=== PATIENT | female | born 1975 | race African-American/Black ===

== ENCOUNTER 2016-06-25 12:25 | Emergency (ER) | payer MEDICAID ==
--- NOTE | 2016-06-25 12:55 | ER Document Report ---
ED Medical Screen (RME) - General Chief Complaint: Post Surgical Bleeding Stated Complaint: POST OP PROBLEMS Notes: Patient had a "tummy tuck" in the [place] last . She flew home from there yesterday morning. She noticed that the incision was beginning to open and drain before she left the [place], but now, she says it has "busted open" and is draining pus. She's been running a low-grade fever last night. She is on an antibiotic prescribed in the [place] but doesn't know which antibiotic and she's been also taking amoxicillin that she has left over from previously. TRAVEL OUTSIDE OF THE [place] IN LAST 30 DAYS: No - Related Data Allergies/Adverse Reactions: No Known Allergies Allergy (Verified 06/25/16 12:42) Past Medical History - Past Medical History Cardiac Medical History: Reports: Hx Hypertension - lisinopril Denies: Hx Coronary Artery Disease, Hx Heart Attack Pulmonary Medical History: Denies: Hx Asthma, Hx Bronchitis, Hx COPD, Hx Pneumonia Neurological Medical History: Denies: Hx Cerebrovascular Accident, Hx Seizures Renal/ Medical History: Denies: Hx Peritoneal Dialysis Musculoskeltal Medical History: Denies Hx Arthritis Past Surgical History: Reports: Hx Gynecologic Surgery - Uterine ablation, Hx Hysterectomy - Immunizations Hx Diphtheria, Pertussis, Tetanus Vaccination: Yes Physical Exam - Vital signs Vitals: Temp Pulse Resp BP Pulse Ox 97.9 F 65 19 122/78 100 06/25/16 12:44 06/25/16 12:44 06/25/16 12:44 06/25/16 12:44 06/25/16 12:44 Course - Vital Signs Vital signs: Temp Pulse Resp BP Pulse Ox 97.9 F 65 19 122/78 100 06/25/16 12:44 06/25/16 12:44 06/25/16 12:44 06/25/16 12:44 06/25/16 12:44
[2016-06-25 13:33] LABS: ABSOLUTE EOSINOPHILS # (AUTO) 0.3 10^3/uL (0.0-0.6); ABSOLUTE LYMPHOCYTES (AUTO) 1.6 10^3/uL (0.5-4.7); ABSOLUTE MONOCYTES (AUTO) 0.7 10^3/uL (0.1-1.4); ABSOLUTE NEUT (AUTO) 7.3 10^3/uL (1.7-8.2); BASOPHILS % (AUTO) 0.5 % (0-2); EOSINOPHILS % (AUTO) 3.3 % (0-6); HEMATOCRIT 30.7 % (36.0-47.0); HEMOGLOBIN 10.3 g/dL (12.0-15.5); HGB HCT DIFFERENCE 0.2; LYMPHOCYTES % (AUTO) 15.8 % (13-45); MEAN CORPUSCULAR HEMOGLOBIN 28.9 pg (27.0-33.4); MEAN CORPUSCULAR HGB CONC 33.5 g/dL (32.0-36.0); MEAN CORPUSCULAR VOLUME 86 fl (80-97); RED BLOOD COUNT 3.55 10^6/uL (3.72-5.28); RED CELL DISTRIBUTION WIDTH 15.8 % (11.5-14.0); SEGMENTED NEUTROPHILS % (AUTO) 73.4 % (42-78)
[2016-06-25 14:06] LABS: ALANINE AMINOTRANSFERASE 30 U/L (9-52); ALBUMIN 3.3 g/dL (3.5-5.0); ALKALINE PHOSPHATASE 60 U/L (38-126); ANION GAP 11 (5-19); ASPARTATE AMINO TRANSFERASE 32 U/L (14-36); BILIRUBIN,DIRECT 0.3 mg/dL (0.0-0.4); BILIRUBIN,TOTAL 0.8 mg/dL (0.2-1.3); BLOOD UREA NITROGEN 19 mg/dL (7-20); CALCIUM 9.2 mg/dL (8.4-10.2); CARBON DIOXIDE 26 mmol/L (22-30); CHLORIDE 102 mmol/L (98-107); CREATININE RESULT 1.26 mg/dL (0.52-1.25); GLUCOSE 89 mg/dL (75-110); SODIUM 139.2 mmol/L (137-145); TOTAL PROTEIN 6.9 g/dL (6.3-8.2)
[2016-06-25] MEDS ORDERED: NORMAL SALINE 1000 ML 1,000 ML IV ONE ×2 (14:08→17:30)
[2016-06-25] MEDS ORDERED: CEFTRIAXONE 1 GM/D5W RTU 50 ML IV ONE (14:44)
[2016-06-25] MEDS ORDERED: ONDANSETRON HCL INJ/PF 4 MG/2 ML SDV IV ONE (15:23)
[2016-06-25] MEDS ORDERED: MORPHINE SULFATE 10 MG/ML INJ IV ONE (15:23)
[2016-06-25 15:26] LABS: APPEARANCE,URINE CLEAR; BILIRUBIN,URINE NEGATIVE (NEGATIVE); GLUCOSE, URINE NEGATIVE (NEGATIVE); KETONES,URINE NEGATIVE (NEGATIVE); LEUKOCYTE ESTERASE,URINE NEGATIVE (NEGATIVE); NITRITE,URINE NEGATIVE (NEGATIVE); PROTEIN,URINE NEGATIVE (NEGATIVE); URINE SPECIFIC GRAVITY 1.011; UROBILINOGEN,URINE NEGATIVE mg/dL (<2.0)
--- NOTE | 2016-06-25 17:46 | PDOC CONSULTATION ---
Consultation Consult Date: 06/25/16 Attending physician:: LM CARLTON Consult reason:: Abdominal wall problems History of Present Illness History of Present Illness: SHANIQUE GREGORIO is a 40 year old female with a history of abdominoplasty, specifically a panniculectomy with conventional closure over drain by a surgeon in [facility] 11 days ago. A drain was removed from the right lower quadrant prior to her return to the [facility] yesterday. She had been placed on oral antibiotics for. She was getting dehydrated and started taking Gatorade. She seemed emergency department because of pain and abdominal wall drainage. She states she had a fever but has had none in the emergency department. She denies history of trauma or previous surgery on her abdominal wall. 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 Social History Smoking Status: Unknown if Ever Smoked Family History Family History: Reviewed & Not Pertinent Parental Family History Reviewed: Yes Children Family History Reviewed: Yes Sibling(s) Family History Reviewed.: Yes Medication/Allergy Home Medications: Oxycodone HCl/Acetaminophen [Percocet 5-325 mg Tablet] 1 tab PO Q6HP PRN #7 tablet 07/12/15 Cholecalciferol (Vitamin D3) [Vitamin D3] 5,000 cap PO DAILY 09/27/15 Citalopram Hydrobromide [Celexa 10 mg Tablet] 1 tab PO DAILY 09/27/15 Ferrous Sulfate [Iron] 1 tab PO DAILY 09/27/15 Lisinopril/Hydrochlorothiazide [Zestoretic 20-12.5 mg Tablet] 1 tab PO DAILY 03/02 Docusate Sodium [Colace 100 mg Capsule] 100 mg PO BID 10/04/15 Ibuprofen [Motrin 800 mg Tablet] 800 mg PO Q8 10/04/15 Ondansetron [Zofran Odt] 8 mg PO Q8 10/04/15 Ketorolac Tromethamine 0.45% [Acuvail 0.45% Oph Soln 0.4 ml/Dropperette] 1 drop OD QID #1 bottle 01/28/16 Oxycodone HCl/Acetaminophen [Percocet 5-325 mg Tablet] 1 - 2 tab PO Q4H PRN #15 tablet 01/28/16 Ibuprofen [Motrin 800 mg Tablet] 800 mg PO Q8H PRN #30 tab 02/11/16 Allergies/Adverse Reactions: No Known Allergies Allergy (Verified 06/25/16 12:42) Review of Systems Constitutional: PRESENT: as per HPI Nose, Mouth, and Throat: PRESENT: as per HPI Breasts: PRESENT: as per HPI Cardiovascular: PRESENT: as per HPI Neurological: PRESENT: as per HPI Physical Exam Vital Signs: Temp Pulse Resp BP Pulse Ox 97.9 F 65 19 122/78 100 06/25/16 12:44 06/25/16 12:44 06/25/16 12:44 06/25/16 12:44 06/25/16 12:44 Intake & Output 06/24/16 06/25/16 06/26/16 06:59 06:59 06:59 Weight 95.3 kg General appearance: PRESENT: mild distress Head exam: PRESENT: normocephalic Eye exam: PRESENT: EOMI Neck exam: PRESENT: full ROM Respiratory exam: PRESENT: clear to auscultation emmanuel GI/Abdominal exam: PRESENT: other - Evidence of umbilical and for umbilical surgical incisions. Abdominal wall with minimal tenderness. There is a long crescent-shaped section of superior skin flap in the process of sloughing. There is moderate epidermal lysis. Results Laboratory Results: 06/25/16 13:00 06/25/16 13:00 06/25/16 06/25/16 06/25/16 13:00 13:00 14:59 WBC 10.0 RBC 3.55 L Hgb 10.3 L Hct 30.7 L MCV 86 MCH 28.9 MCHC 33.5 RDW 15.8 H Plt Count 363 Seg Neutrophils % 73.4 Lymphocytes % 15.8 Monocytes % 7.0 Eosinophils % 3.3 Basophils % 0.5 Absolute Neutrophils 7.3 Absolute Lymphocytes 1.6 Absolute Monocytes 0.7 Absolute Eosinophils 0.3 Absolute Basophils 0.0 Sodium 139.2 Potassium 5.0 Chloride 102 Carbon Dioxide 26 Anion Gap 11 BUN 19 Creatinine 1.26 H Est GFR ( Amer) 56 L Est GFR (Non-Af Amer) 47 L Glucose 89 Calcium 9.2 Total Bilirubin 0.8 AST 32 ALT 30 Alkaline Phosphatase 60 Total Protein 6.9 Albumin 3.3 L Urine Color YELLOW Urine Appearance CLEAR Urine pH 6.0 Ur Specific [place] 1.011 Urine Protein NEGATIVE Urine Glucose (UA) NEGATIVE Urine Ketones NEGATIVE Urine Blood NEGATIVE Urine Nitrite NEGATIVE Ur Leukocyte Esterase NEGATIVE Urine WBC (Auto) 1 Urine RBC (Auto) 0 Impressions: Abdomen/Pelvis CT 06/25/16 14:16 IMPRESSION: 1. EXTENSIVE CHANGES IN THE SUBCUTANEOUS FATTY TISSUES DESCRIBED SECONDARY TO RECENT SURGERY AND LIPOSUCTION. SCATTERED FLUID COLLECTIONS WITH AREAS OF GAS IN THE SUBCUTANEOUS FATTY TISSUES PRESUMABLY REPRESENT POSTOPERATIVE CHANGE AND POSTOPERATIVE SEROMAS. ASSOCIATED INFECTION CANNOT BE EXCLUDED BASED ON CURRENT IMAGING. 2. RIGHT NEPHRECTOMY. OTHERWISE UNREMARKABLE ABDOMEN AND PELVIS. Assessment & Plan - Diagnosis (1) Status post abdominoplasty Plan: 1. I have reviewed the patient's history, physical exam findings, and CT scan findings which was a limited study; findings are consistent with postoperative changes system with residual air pockets in the subcutaneous tissue likely from the previous drain. In the absence of fever, white blood cell count elevation and left shift, this is the most likely scenario; however residual surgical site wound infection may be smoldering as the patient has been on oral antibiotics. In addition the patient has an area of epidermal lysis gets going to slough off , or require surgical debridement, likely a local conditions, which will subsequently require wound care. My recommendations are: Hibiclens scrub brushes provided to be used twice a day over the abdominal wall for gentle mechanical debridement effects; dressings to then be applied to the panniculectomy incision. The patient will require advanced wound care management on an outpatient basis, so that referral is being made through the emergency department. Conversely, the patient may deteriorate, and require more emergent intervention such as surgical debridement. 2. The patient has a solitary kidney, with some renal insufficiency, likely due to dehydration from poor eating habits, etc. I suggested 2 L of normal saline rehydration; patient should follow-up with primary care service to recheck her BUN/creatinine. I discussed the above with the emergency department staff who will make the appropriate arrangements. Prescription for pain medications stool softener provided. - Time Time Spent: 30 to 50 Minutes Critical Time spent with patient: Less than 15 minutes
--- NOTE | 2016-06-25 17:58 | ER Document Report ---
ED General - General Chief Complaint: Post Surgical Bleeding Stated Complaint: POST OP PROBLEMS Mode of Arrival: Ambulatory Information source: Patient Notes: 40 y/o F presents to ED c/o post-op wound complication. Pt reports had liposuction and "tummytuck" procedure 11 days ago in [place]. States was there for the last 10 days and flew back to local area yesterday. Reports has noted drainage and peeling of skin from surgical incision site. Reports associated subjective fever. States has been tolerating oral fluids and solids without difficulty and has been having normal bowel movements. Denies chest pain , sob, dysuria, or blood in stool. TRAVEL OUTSIDE OF THE [place] IN LAST 30 DAYS: No - HPI Onset/Duration: Persistent Quality of pain: Achy Severity: Moderate Pain Level: 3 Similar symptoms previously: No Recently seen / treated by doctor: Yes - Related Data Allergies/Adverse Reactions: No Known Allergies Allergy (Verified 06/25/16 12:42) Past Medical History - General Information source: Patient - Social History Smoking Status: Former Smoker Frequency of alcohol use: None Drug Abuse: None Lives with: Family Family History: Reviewed & Not Pertinent Patient has suicidal ideation: No Patient has homicidal ideation: No - Past Medical History Cardiac Medical History: Reports: Hx Hypertension Denies: Hx Coronary Artery Disease, Hx Heart Attack Pulmonary Medical History: Denies: Hx Asthma, Hx Bronchitis, Hx COPD, Hx Pneumonia Neurological Medical History: Denies: Hx Cerebrovascular Accident, Hx Seizures Renal/ Medical History: Denies: Hx Peritoneal Dialysis Musculoskeltal Medical History: Denies Hx Arthritis Past Surgical History: Reports: Hx Abdominal Surgery - abdominoplasty, Hx Gynecologic Surgery - Uterine ablation, Hx Hysterectomy, Other - 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 - Immunizations Hx Diphtheria, Pertussis, Tetanus Vaccination: Yes Review of Systems - Review of Systems Constitutional: No symptoms reported EENT: No symptoms reported Cardiovascular: No symptoms reported Respiratory: No symptoms reported Gastrointestinal: See HPI Genitourinary: No symptoms reported Female Genitourinary: No symptoms reported Musculoskeletal: No symptoms reported Skin: See HPI Hematologic/Lymphatic: No symptoms reported Neurological/Psychological: No symptoms reported -: Yes All other systems reviewed and negative Physical Exam - Vital signs Vitals: Temp Pulse Resp BP Pulse Ox 97.9 F 65 19 122/78 100 06/25/16 12:44 06/25/16 12:44 06/25/16 12:44 06/25/16 12:44 06/25/16 12:44 - General General appearance: Appears well, Alert In distress: None - HEENT Head: Normocephalic, Atraumatic Eyes: Normal Pupils: PERRL - Respiratory Respiratory status: No respiratory distress Chest status: Nontender Breath sounds: Normal - CTAB Chest palpation: Normal - Cardiovascular Rhythm: Regular Heart sounds: Normal auscultation Murmur: No Pulses: Normal: Radial Normal capillary refill: Yes - Abdominal Inspection: Fresh incision - lower abdomen crescent shaped surgical incision extending entire width of abdomen. mild tenderness with palpation along incision with some localized skin thickening. sloughing skin to central section of incision and small amounts of serosanguineous drainage., Obese Distension: No distension Bowel sounds: Normal Tenderness: Tender. No: Nontender, McBurney's point, Velasquez's sign, Guarding, Rebound, Other Organomegaly: No organomegaly - Back Back: Normal, Nontender. No: CVA tenderness - Extremities General upper extremity: Normal inspection, Nontender, Normal color, Normal ROM , Normal strength, Normal temperature. No: Edema General lower extremity: Normal inspection, Nontender, Normal color, Normal ROM , Normal strength, Normal temperature, Normal weight bearing. No: Edema, Bella' s sign - Neurological Neuro grossly intact: Yes Cognition: Normal Orientation: AAOx4 Jenny Coma Scale Eye Opening: Spontaneous Jenny Coma Scale Verbal: Oriented Jenny Coma Scale Motor: Obeys Commands Jenny Coma Scale Total: 15 Speech: Normal Motor strength normal: LUE, RUE, LLE, RLE Sensory: Normal - Skin Skin Temperature: Warm Skin Moisture: Dry Skin Color: Normal Course - Re-evaluation Re-evalutation: 06/25/16 18:10 Patient hemodynamically stable, in no distress, afebrile. Pt presentation and lab/radiologic findings were discussed with surgeon on-call Dr. Poe who evaluated patient in the Emergency Department and recommends outpatient follow- up with wound care clinic, pain control, home wound care instructions, and rehydration. Pt will receive 2L NS in the ED and is tolerating oral fluids and solids without difficulty or vomiting. Pt appears stable for discharge and agrees with home care, follow-up, and, ED return precautions. - Vital Signs Vital signs: Temp Pulse Resp BP Pulse Ox 97.2 F 61 16 122/75 100 06/25/16 18:48 06/25/16 18:48 06/25/16 18:48 06/25/16 18:48 06/25/16 18:48 - Laboratory Result Diagrams: 06/25/16 13:00 06/25/16 13:00 Laboratory results interpreted by me: 06/25/16 06/25/16 13:00 13:00 RBC 3.55 L Hgb 10.3 L Hct 30.7 L RDW 15.8 H Creatinine 1.26 H Est GFR ( Amer) 56 L Est GFR (Non-Af Amer) 47 L Albumin 3.3 L - Diagnostic Test Radiology reviewed: Image reviewed, Reports reviewed Discharge - Discharge Clinical Impression: Status post abdominoplasty, Dehydration Delayed surgical wound healing Qualifiers: Encounter type: initial encounter Qualified Code(s): T81.89XA - Other complications of procedures, not elsewhere classified, initial encounter Condition: Stable Disposition: HOME, SELF-CARE Additional Instructions: Dressing Instructions for Open Wounds The [employer] scrub brushes were provided to be used twice a day over the abdominal wall wound. After cleansing apply a non-stick gauze pad such as Telfa or Adaptic and clean regular gauze on top. Apply just enough tape to keep the bandage in place. Dressings should also be replaced if they become wet, blood-soaked, soaked with drainage, or dirty. Oral Narcotic Medication You have been given a prescription for pain control. This medication is a narcotic. It's best taken with food, as nausea can result if taken on an empty stomach. Don't operate machinery or drive within six hours of taking this medication. Do not combine this medicine with alcohol, or with any medication which can cause sedation (such as cold tablets or sleeping pills) unless you get permission from the physician. Narcotics tend to cause constipation. If possible, drink plenty of fluids and eat a diet high in fiber and fruits. Stool Softener A stool softener has been prescribed. This medication will make your stool softer, bulkier, and more easily passed. This is useful for many conditions which cause intestinal cramping. It's especially good for constipation or irritable bowels. Take the stool softener with a large glass of water, as often as prescribed. Extra fluids during the day will help. You should contact your physician if you develop severe abdominal pain, fever, vomiting, blood in the stools, or other alarming symptoms. Continue taking your previously prescribed antibiotic. Eat a balanced diet and drink plenty of fluids. At least 2 liters of water per day. Follow-up with the wound care clinic and [facility] this week. Call tomorrow morning for appointment. Return to the Emergency Department for any fever, pus in drainage, increased swelling or redness, decreased urine output, or any other worsening symptoms or concerns. Prescriptions: Docusate Sodium [Colace 100 mg Capsule] 100 mg PO DAILY #30 capsule Hydrocodone/Acetaminophen [[place] 5-325 mg Tablet] 1 tab PO Q6H PRN #10 tablet PRN Reason: Referrals: [facility] [Provider Group] - Follow up tomorrow Wound Care [Provider Group] - Follow up tomorrow
[2016-06-25 18:48] VITALS: BP 122/75
== END 2016-06-25 19:11 | disposition home or self-care (01) ==
LOC: ER 12:25
DX: T81.89XA Other complications of procedures, not elsewhere classified, initial encounter (principal); E86.0 Dehydration; L76.22 Postprocedural hemorrhage of skin and subcutaneous tissue following other procedure; R50.9 Fever, unspecified; Z87.891 Personal history of nicotine dependence; Z98.890 Other specified postprocedural states
CPT/HCPCS: 99284; 96361; 96375; 96365; 36415; 87040; 85025; 80053; 81001; 74177; J2270; J2405; J7030; J0696

== ENCOUNTER 2016-07-16 12:46 | Day surgery (SDC) | payer MEDICAID ==
--- NOTE | 2016-07-13 09:42 | EKG REPORT ---
SEVERITY:- NORMAL ECG - SINUS RHYTHM : Confirmed by: Atif Simpson 13-Jul-2016 09:41:44
[2016-07-13 11:00] LABS: HEMATOCRIT 30.7 % (36.0-47.0); HEMOGLOBIN 10.2 g/dL (12.0-15.5); HGB HCT DIFFERENCE -0.1; MEAN CORPUSCULAR HGB CONC 33.2 g/dL (32.0-36.0); MEAN CORPUSCULAR VOLUME 87 fl (80-97); RED BLOOD COUNT 3.53 10^6/uL (3.72-5.28); RED CELL DISTRIBUTION WIDTH 16.2 % (11.5-14.0); WHITE BLOOD COUNT 5.8 10^3/uL (4.0-10.5)
[2016-07-13 11:30] LABS: ANION GAP 14 (5-19); BLOOD UREA NITROGEN 16 mg/dL (7-20); CALCIUM 9.5 mg/dL (8.4-10.2); CARBON DIOXIDE 23 mmol/L (22-30); CHLORIDE 104 mmol/L (98-107); CREATININE RESULT 1.02 mg/dL (0.52-1.25); GLUCOSE 87 mg/dL (75-110); POTASSIUM 4.3 mmol/L (3.6-5.0); SODIUM 140.5 mmol/L (137-145)
--- NOTE | 2016-07-16 12:04 | PDOC H&P ---
General Chief Complaint: The patient is being admitted for debridement of a large abdominal wall area of necrosis after abdominoplasty about 2 months ago. This was done in the [facility] [place]. - Diagnosis (1) Fat necrosis of abdominal wall Is this a Current Diagnosis?: Yes - Current Medications/Allergies Home Medications: Lisinopril/Hydrochlorothiazide [Zestoretic 20-12.5 mg Tablet] 1 tab PO DAILY 03/02 Allergies/Adverse Reactions: No Known Allergies Allergy (Verified 06/25/16 12:42) Past Medical History Cardiac Medical History: Reports: Hypertension - on meds Denies: Coronary Artery Disease, Myocardial Infarction Pulmonary Medical History: Denies: Asthma, Bronchitis, Chronic Obstructive Pulmonary Disease (COPD), Pneumonia Neurological Medical History: Denies: Seizures Musculoskeltal Medical History: Denies: Arthritis Hematology: Reports: Anemia - hx of Past Surgical History Past Surgical History: Reports: Hysterectomy, Other - 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 Family History Family History: Reviewed & Not Pertinent Parental Family History Reviewed: No Children Family History Reviewed: No Sibling(s) Family History Reviewed.: No Social History Smoking Status: Never Smoker Physical Exam Vital Signs: Temp Pulse Resp BP Pulse Ox 66 14 132/78 H 97 07/13/16 09:35 07/13/16 09:35 07/13/16 09:35 07/13/16 09:35 Additional comments: A well-developed well-nourished -[place] female. Moderately increased body habitus. No acute distress. Eyes membranes is pink and moist, sclerae anicteric. Respiratory no shortness of breath. Breath sounds are normal and equal bilaterally. Cardiac: Heart sounds 1 and 2 heard, no murmurs. Upper extremities show normal range of movement and pulsatile to the radials. Normal capillary refill. Abdomen: Scars from recent abdominoplasty noted. Extensive necrosis noted in curvilinear lower abdominal versus incision. The seroma with liquefied fat Some granulation tissue. Psychiatric the patient is alert, oriented, judgment, memory, insight normal Impression/Plan Impression: #1 necrosis of abdominal wall fat. #2 increased body mass index. #3 hypertension. #4 anemia. Plan: The plan is for debridement of abdominal wall under local with sedation or general anesthesia. Include infection, bleeding, heart, lung, patient's, injury to other structures. These were discussed patient with the patient was agreeable and wishes to proceed.
[~2016-07-16 12:46] MED LIST: LACTATED RINGERS 1000 ML IV PRN; LIDOCAINE 0.5% INJ-PF (5 MG/ML) 50 ML SDV SUBCUT PRN
[2016-07-16] MEDS ORDERED: CEFAZOLIN 1 GM/D5W RTU 1 GM/50 ML RTUPB IV ONE (12:56)
[2016-07-16] MEDS ORDERED: BUPIVACAINE HCL 0.25 % INJ/PF (2.5 MG/1 ML) 30 ML VIAL ONE (14:12)
[2016-07-16] MEDS ORDERED: LIDOCAINE 0.5% INJ-PF (5 MG/ML) 50 ML SDV ONE (14:12)
[2016-07-16] MEDS ORDERED: BACITRACIN INJ 50,000 UNIT VIAL ONE (14:12)
[2016-07-16] MEDS ORDERED: LIDOCAINE 2% INJ-PF (20 MG/ML) 10 ML AMPUL ONE (14:34)
[2016-07-16] MEDS ORDERED: FENTANYL CITRATE INJ/PF 100 MCG/2 ML AMPUL ONE ×2 (14:35→16:16)
[2016-07-16] MEDS ORDERED: PROPOFOL INJ 200 MG/20 ML VIAL IV ONE (14:35)
[2016-07-16] MEDS ORDERED: DEXMEDETOMIDINE INJ 80 MCG/20 ML VIAL IV ONE (14:35)
[2016-07-16] MEDS ORDERED: MIDAZOLAM 2 MG/2 ML INJ ONE (14:35)
[2016-07-16] MEDS ORDERED: ONDANSETRON HCL INJ/PF 4 MG/2 ML SDV ONE ×2 (14:47→17:35)
[2016-07-16] MEDS ORDERED: COLLAGENASE CLOSTRIDIUM HIST. OINT 30 GM ONE (15:08)
[2016-07-16] MEDS ORDERED: SILVER SULFADIAZINE 1% CREAM 25 GM ONE (15:08)
[2016-07-16] MEDS ORDERED: MORPHINE SULFATE 10 MG/ML INJ IV PRN (15:41)
[2016-07-16] MEDS ORDERED: PROMETHAZINE HCL INJ 25 MG/1 ML VIAL IV PRN ×2 (15:41)
[2016-07-16] MEDS ORDERED: FENTANYL CITRATE INJ/PF 100 MCG/2 ML AMPUL IV PRN ×3 (15:41)
[2016-07-16] MEDS ORDERED: MEPERIDINE HCL/PF INJ 25 MG/1 ML DISP.SYRIN IV PRN (15:41)
[2016-07-16] MEDS ORDERED: DIPHENHYDRAMINE HCL 50 MG/ML VIAL IV PRN (15:41)
--- NOTE | 2016-07-16 16:06 | PDOC DISCHARGE SUMMARY ---
Discharge Summary (SDC) - Discharge Final Diagnosis: #1 necrosis of abdominal wall fat. #2 increased body mass index. #3 hypertension. #4 anemia. Date of Surgery: 07/16/16 Discharge Date: 07/16/16 Condition: Good Treatment or Instructions: #1 activities within moderation encouraged. #2 follow up in wound clinic by appointment on Saturday of this week. Call for appointment. #3 the wounds covered clean and dry until office visit. #4 hold off on school/work until evaluation in office. #5 may shower in 48 hours, keep operated area as dry as possible. #6 discharge from ambulatory when ASU criteria met. #7 medications per medication reconciliation sheet. #8 Percocet by prescription.. Also may have one Percocet up to every 2 hours when necessary for pain greater than 4 out of 10 while in the ASU Prescriptions: Oxycodone HCl/Acetaminophen [Percocet 5-325 mg Tablet] 1 tab PO ASDIR PRN #15 tab PRN Reason:
--- NOTE | 2016-07-16 16:10 | Operative Report ---
Operative Report DATE OF SURGERY: 07/16/16 PREOPERATIVE DIAGNOSIS: #1 necrosis of abdominal wall fat. #2 increased body mass index. #3 hypertension. #4 anemia. POSTOPERATIVE DIAGNOSIS: #1 necrosis of abdominal wall fat. Post debridement. #2 increased body mass index. #3 hypertension. #4 anemia. OPERATION: Abdominal wall debridement. Sharp surgical, excisional. Wound size 6 x 15 x 10 cm deep SURGEON: [employer] SERVER DEVELOPER: none ANESTHESIA: LMAC TISSUE REMOVED OR ALTERED: Necrotic subcutaneous fat COMPLICATIONS: None ESTIMATED BLOOD LOSS: 20 mL. INTRAOPERATIVE FINDINGS: Of a large wound the opening 15 x 6 cm x 15 cm deep. Mostly healthy granulation but quite a bit of necrotic fat encountered and removed. Extending on either side of the incision up towards the midline being relatively secure. PROCEDURE: PROCEDURE: The [left foot ]was prepared with [Betadine] and draped out with sterile linen. After the"universal time-out", in which it was confirmed that the patient [did receive antibiotic], the procedure commenced. The patient was appropriately anesthetized. The wound was probed. Cultures were now taken and sent. The wound was debrided of non viable tissue using[Rongeurs] with removal of loose debris, as well. The wound was irrigated with [Peroxide] . Debridement was done with rongeurs and scissors. The wound was now irrigated with saline and [Surgicel] placed within it, dressed with [Kerlix] and the procedure concluded.
[2016-07-16] MEDS ORDERED: OXYCODONE-ACETAMINOPHEN 5-325 MG TABLET ONE (17:05)
[2016-07-16 18:33] VITALS: BP 112/79
== END 2016-07-16 18:30 | disposition home or self-care (01) ==
LOC: OROUT 12:46
PROVIDERS: ATTEND Surgery
PROC: 0HB7XZZ Excision of Abdomen Skin, External Approach (ICD-10-PCS; principal; 2016-07-16 15:00)
DX: L76.82 Other postprocedural complications of skin and subcutaneous tissue (principal); K65.4 Sclerosing mesenteritis; Y83.8 Other surgical procedures as the cause of abnormal reaction of the patient, or of later complication, without mention of misadventure at the time of the procedure; I10 Essential (primary) hypertension; D46.9 Myelodysplastic syndrome, unspecified; Z79.899 Other long term (current) drug therapy
CPT/HCPCS: 93005; 36415 ×2; 84132; 85027; 80048; 93010; 97597; 97598 ×4; J2250; J3490 ×4; J0690; J3010; J2405; S0020; J2704; 800

== ENCOUNTER 2016-09-06 05:12 | Day surgery (SDC) | payer MEDICAID ==
--- NOTE | 2016-09-06 10:21 | PDOC H&P ---
General Chief Complaint: The patient presents with a open abdominal wound for debridement. - Current Medications/Allergies Home Medications: Lisinopril/Hydrochlorothiazide [Zestoretic 20-12.5 mg Tablet] 1 tab PO DAILY 03/02 Oxycodone HCl/Acetaminophen [Percocet 5-325 mg Tablet] 1 tab PO ASDIR PRN Allergies/Adverse Reactions: No Known Allergies Allergy (Verified 08/30/16 09:54) Past Medical History Cardiac Medical History: Denies: Coronary Artery Disease, Myocardial Infarction, Hypertension Pulmonary Medical History: Denies: Asthma, Bronchitis, Chronic Obstructive Pulmonary Disease (COPD), Pneumonia Neurological Medical History: Denies: Seizures Musculoskeltal Medical History: Denies: Arthritis Hematology: Reports: Anemia - pt states anemic Past Surgical History Past Surgical History: Reports: Hysterectomy, Other - 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 No apparent acute distress. Eyes: Mucous membranes pink and moist, pupils equal and reactive to light. Conjunctiva normal. Cornea normal. ENT: Hearing grossly normal. External pinna normal to inspection. Teeth intact. Tongue normal to inspection. Cardiac: Heart sounds 1 and 2 normal, no murmurs. Respiratory breath sounds are present bilaterally, normal. Normal respiratory effort. Skin: Large open abdominal wound, transversely in the lower abdomen. Major tunneling to the left and to the right. Abdomen: Soft, nontender. Liver and spleen are not palpably enlarged. Bowel sounds are normal. No hernia noted. Surgical scars present. Large open abdominal wound, transversely in the lower abdomen. Major tunneling to the left and to the right. Psychiatric: Judgment, memory, insight seem normal. Mood is pleasant and appropriate. Extremities: Upper extremities show normal range of movement. Pulses present noted to the radial arteries. Capillary refill normal. No cyanosis noted. No muscle wasting noted. Impression/Plan Impression: #1 fat necrosis of abdominal wall surgical wound. 2. Obesity. Plan: Debridement of abdominal wall and possibly VAC application. Procedure, its risks, benefits, expected outcome and alternatives are familiar to the patient and she wishes to proceed.
[2016-09-06] MEDS ORDERED: BACITRACIN INJ 50,000 UNIT VIAL ONE (11:07)
[2016-09-06] MEDS ORDERED: LIDOCAINE 0.5% INJ-PF (5 MG/ML) 50 ML SDV ONE (11:07)
[2016-09-06] MEDS ORDERED: BUPIVACAINE HCL 0.25 % INJ/PF (2.5 MG/1 ML) 30 ML VIAL ONE (11:07)
[2016-09-06] MEDS ORDERED: FENTANYL CITRATE INJ/PF 100 MCG/2 ML AMPUL ONE (11:09)
[2016-09-06] MEDS ORDERED: LIDOCAINE 2% INJ-PF (20 MG/ML) 10 ML AMPUL ONE (11:09)
[2016-09-06] MEDS ORDERED: MIDAZOLAM 2 MG/2 ML INJ ONE (11:10)
[2016-09-06] MEDS ORDERED: PROPOFOL INJ 200 MG/20 ML VIAL IV ONE (11:10)
[2016-09-06] MEDS ORDERED: MORPHINE SULFATE 10 MG/ML INJ IV PRN (11:38)
[2016-09-06] MEDS ORDERED: FENTANYL CITRATE INJ/PF 100 MCG/2 ML AMPUL IV PRN ×3 (11:38)
[2016-09-06] MEDS ORDERED: DIPHENHYDRAMINE HCL 50 MG/ML VIAL IV PRN (11:38)
[2016-09-06] MEDS ORDERED: MEPERIDINE HCL/PF INJ 25 MG/1 ML DISP.SYRIN IV PRN (11:38)
[2016-09-06] MEDS ORDERED: OXYCODONE-ACETAMINOPHEN 5-325 MG TABLET PO PRN ×2 (11:38)
[2016-09-06] MEDS ORDERED: ONDANSETRON HCL INJ/PF 4 MG/2 ML SDV IV PRN (11:38)
[2016-09-06] MEDS ORDERED: PROMETHAZINE HCL INJ 25 MG/1 ML VIAL IV PRN ×2 (11:38)
--- NOTE | 2016-09-06 12:38 | PDOC DISCHARGE SUMMARY ---
Discharge Summary (SDC) - Discharge Final Diagnosis: abdominal wall fat necrosis. Obesity Date of Surgery: 09/06/16 Discharge Date: 09/06/16 Condition: Good Treatment or Instructions: Discharge patient home per asu criteria. Continue meds per med rec. Leave dressings on till office. Follow up in wound clinic, this week.
[2016-09-06] MEDS ORDERED: MORPHINE SULFATE 10 MG/ML INJ ONE (12:40)
[2016-09-06 13:54] VITALS: BP 119/77
--- NOTE | 2016-09-26 13:22 | Operative Report ---
Operative Report DATE OF SURGERY: 09/06/16 PREOPERATIVE DIAGNOSIS: Necrosis of abdominal wall surgical site. POSTOPERATIVE DIAGNOSIS: Necrosis of abdominal wall surgical site. Post debridement. OPERATION: Debridement of abdominal wall wound. SURGEON: MAINE ALFRED PAN DUMPER: None TISSUE REMOVED OR ALTERED: Nonviable skin and tissue of abdominal wall. COMPLICATIONS: None ESTIMATED BLOOD LOSS: 20 mL. INTRAOPERATIVE FINDINGS: Of a transverse lower abdominal wound in aggregate 12 cm. Some necrosis of the cutaneous fat and tissues. As well as overlying skin. Nonviable material removed. Size of wound is 12 x 3 cm x 2 cm deep. PROCEDURE: PROCEDURE: The [left foot ]was prepared with [Betadine] and draped out with sterile linen. After the"universal time-out", in which it was confirmed that the patient [did receive antibiotic], the procedure commenced. The patient was appropriately anesthetized. The wound was probed. The wound was debrided of non viable tissue using[ Rongeurs] with removal of loose debris, as well. The deeper portion of the wound was curetted.. The wound was irrigated with [Peroxide] . The wound was now irrigated with saline and [Surgicel] placed within it, dressed with [Kerlix ] and the procedure concluded.
== END 2016-09-06 14:00 | disposition home or self-care (01) ==
LOC: OROUT 05:12
PROVIDERS: ATTEND Surgery
PROC: 0KBK0ZZ Excision of Right Abdomen Muscle, Open Approach (ICD-10-PCS; 2016-09-06)
PROC: 0KBL0ZZ Excision of Left Abdomen Muscle, Open Approach (ICD-10-PCS; principal; 2016-09-06 11:00)
DX: T81.4XXA Infection following a procedure, initial encounter (principal); Y83.9 Surgical procedure, unspecified as the cause of abnormal reaction of the patient, or of later complication, without mention of misadventure at the time of the procedure; I10 Essential (primary) hypertension; D64.9 Anemia, unspecified; E66.9 Obesity, unspecified; Z79.899 Other long term (current) drug therapy; Z68.36 Body mass index [BMI] 36.0-36.9, adult
CPT/HCPCS: 36415; 84132; 11005; J2250; J3490 ×3; J3010; J2270; J2405; S0020; J2704; 800

== ENCOUNTER 2018-07-21 22:25 | Emergency (ER) | payer SELFPAY ==
[2018-07-21] MEDS ORDERED: MORPHINE SULFATE 10 MG/ML INJ IV ONE (23:07)
[2018-07-21] MEDS ORDERED: ONDANSETRON HCL INJ/PF 4 MG/2 ML SDV IV ONE (23:07)
[2018-07-21] MEDS ORDERED: HYDRALAZINE HCL INJ/PF 20 MG/1 ML SDV IV ONE (23:07)
--- NOTE | 2018-07-21 23:12 | ER Document Report ---
ED General - General Chief Complaint: Blood Pressure Problem Stated Complaint: BLOOD PRESSURE ISSUES Time Seen by Provider: 07/21/18 22:56 Primary Care Provider: BEATRIZ HILARIO MD [ACTIVE STAFF] - Follow up as needed TRAVEL OUTSIDE OF THE [place] IN LAST 30 DAYS: No - HPI Notes: Patient is a 42-year-old female that presents to the emergency department for chief complaint of headache and hypertension. Patient reports history of chronic hypertension. She is on lisinopril daily and states she has clonidine that she takes when it becomes very high. Patient states this evening she started to have a headache and is "seeing colors" in her visual field. She took her clonidine 0.2 mg about 1 hour ago and states that it has improved her blood pressure. She describes her headache as a throbbing sensation in her bilateral frontal region. She reports associated nausea but de nies any vomiting. She denies any photophobia or phonophobia. She states she does frequently get headaches when her blood pressure gets severely elevated. 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 Patient also reports she believes she has had an NY in the past but never followed with the flat clothier as recommended. Past Medical History: Hypertension, renal insufficiency, [place] Past Surgical History: Nephrectomy Social History: Denies tobacco, drug use, and alcohol Family History: Reviewed and noncontributory for presenting illness Allergies: Reviewed, see documented allergy list. REVIEW OF SYSTEMS: CONSTITUTIONAL : No fever No chills No diaphoresis No recent illness EENT: vision changes No congestion No sore throat CARDIOVASCULAR: No chest pain No palpitations RESPIRATORY: No shortness of breath No cough No difficulty breathing GASTROINTESTINAL: No abdominal pain No nausea No vomiting No diarrhea GENITOURINARY: No dysuria No hematuria No difficulty urinating MUSCULOSKELETAL: No back pain No leg pain No arm pain SKIN: No rashes No lesions LYMPHATIC: No swollen, enlarged glands. NEUROLOGICAL: No lightheadedness headache No weakness No paresthesias PSYCHIATRIC: No anxiety No depression PHYSICAL EXAMINATION: Vital signs reviewed, nursing noted reviewed. GENERAL: Appears uncomfortable, well-nourished HEAD: Atraumatic, normocephalic. EYES: Eyes appear normal, extraocular movements intact, sclera anicteric, conjunctiva are normal. ENT: nares patent, oropharynx clear without exudates. Moist mucous membranes. NECK: Normal range of motion, supple without lymphadenopathy LUNGS: Breath sounds clear to auscultation bilaterally and equal. No wheezes rales or rhonchi. HEART: Regular rate and rhythm without murmurs ABDOMEN: Soft, nontender, normoactive bowel sounds. No rebound, guarding, or rigidity. No masses appreciated. EXTREMITIES: Nontender, good range of motion, no pitting or edema. NEUROLOGICAL: No focal neurological deficits. Moves all extremities spontaneously Motor and sensory grossly intact on exam. PSYCH: Normal mood, normal affect. SKIN: Warm, Dry, normal turgor, no rashes or lesions noted on exposed skin - Related Data Allergies/Adverse Reactions: No Known Allergies Allergy (Verified 08/30/16 09:54) Past Medical History - Social History Smoking Status: Never Smoker Family History: Reviewed & Not Pertinent - Past Medical History Cardiac Medical History: Denies: Hx Coronary Artery Disease, Hx Heart Attack, Hx Hypertension Pulmonary Medical History: Denies: Hx Asthma, Hx Bronchitis, Hx COPD, Hx Pneumonia Neurological Medical History: Denies: Hx Cerebrovascular Accident, Hx Seizures Renal/ Medical History: Denies: Hx Peritoneal Dialysis Musculoskeletal Medical History: Denies Hx Arthritis Past Surgical History: Reports: Hx Abdominal Surgery - abdominoplasty, Hx Gynecologic Surgery - Uterine ablation, Hx Hysterectomy, Other - 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 Nursing notes reviewed. Patient appears uncomfortable but has no focal neurologic deficits. Her blood pressure is elevated and she was ordered a dose of hydralazine for further hypertension control. Patient is bradycardic and states that she has a history of bradycardia. CT scan will be ordered given her complaint of headache in the setting of hypertension to evalu ate for intracranial hemorrhage. Lab work will be obtained to evaluate for end organ damage. Patient placed on electronic device monitor. 07/22/18 01:09 Patient reevaluated and is currently asymptomatic. She states her vision changes and headache have completely resolved. Patient's lab work shows no renal insufficiency. Her troponin is normal. CT scan of the brain shows no intracranial hemorrhage or other acute lesions. Patient did have some nonspecific T wave changes on initial EKG and repeat EKG is unchanged. She does have a history of [place] in the past and I encouraged her to contact cardiology to obtain a stress test as an outpatient and to better control her chronic hypertension. Patient will be referred to Dr. Arita for further cardiac evaluation. She has not had any chest pain to suggest acute ACS or necessitate admission to the hospital today. Patient is asymptomatic at discharge. Laboratory 07/21/18 07/21/18 07/21/18 23:40 23:40 23:40 WBC 6.9 RBC 3.85 Hgb 11.2 L Hct 34.0 L MCV 88 MCH 29.0 MCHC 32.9 RDW 15.3 H Plt Count 258 Seg Neutrophils % 66.2 Lymphocytes % 23.4 Monocytes % 7.7 Eosinophils % 2.0 Basophils % 0.7 Absolute Neutrophils 4.6 Absolute Lymphocytes 1.6 Absolute Monocytes 0.5 Absolute Eosinophils 0.1 Absolute Basophils 0.1 Sodium 138.5 Potassium 4.1 Chloride 103 Carbon Dioxide 26 Anion Gap 10 BUN 17 Creatinine 0.91 Est GFR ( Amer) > 60 Est GFR (Non-Af Amer) > 60 Glucose 115 H Calcium 9.5 Troponin I < 0.[address] 07/21/18 22:56 IMPRESSION: No acute intracranial abnormalities. TECHNICAL DOCUMENTATION: Quality ID # 436: Final reports with documentation of one or more dose reduction techniques (e.g., Automated exposure control, adjustment of the mA and/or kV according to patient size, use of iterative reconstruction technique) copyright 2011 [employer]- All Rights Reserved - Vital Signs Vital signs: Temp Pulse Resp BP Pulse Ox 97.4 F 61 14 165/99 H 100 07/22/18 00:17 07/21/18 23:36 07/22/18 00:17 07/22/18 00:17 07/22/18 00:17 - Laboratory Result Diagrams: 07/21/18 23:40 07/21/18 23:40 Laboratory results interpreted by me: 07/21/18 07/21/18 23:40 23:40 Hgb 11.2 L Hct 34.0 L RDW 15.3 H Glucose 115 H - EKG Interpretation by Me Additional EKG results interpreted by me: 07/21/18 23:19 Interpreted by myself [id number]: Sinus bradycardia, rate 53, borderline prolonged QT, QTc 489, biphasic appearing T waves in V2 V3 with T wave inversions laterally, new compared to 07/13/2016. No STEMI 07/22/18 01:09 Interpreted by myself [id number]: Sinus bradycardia, rate 56, normal axis, again seen biphasic T wave in V2 V3 with T wave inversions laterally but unchanged from initial EKG. No ST elevation Discharge - Discharge Clinical Impression: Abnormal EKG Hypertension Qualifiers: Hypertension type: unspecified Qualified Code(s): I10 - Essential (primary) hyp ertension Cephalgia Qualifiers: Headache type: unspecified Headache chronicity pattern: acute headache Intract ability: not intractable Qualified Code(s): R51 - Headache Condition: Stable Disposition: HOME, SELF-CARE Instructions: High Blood Pressure, Requiring Treatment ([facility]), Headache ([facility]), Electrogram Abnormality ([facility]) Additional Instructions: Please return to the emergency department if you have any worsening, or concern of your symptoms. Please return to the emergency department if you develop chest pain, difficulty breathing, severe abdominal pain, or ongoing vomiting. Please follow-up with your primary care physician in 2-3 days and any other recommended physicians. If prescribed, take all medications as directed. If you have any questions or concerns do not hesitate to return the emergency department for evaluation. Continue taking her blood pressure medications as directed Contact Dr. Arita, cardiology, to follow-up on your abnormal EKG Referrals: SUJATA ARITA MD [ACTIVE STAFF] - Follow up in 3-5 days BEATRIZ HILARIO MD [ACTIVE STAFF] - Follow up in 3-5 days
[2018-07-21] MEDS ORDERED: PROMETHAZINE HCL INJ 25 MG/1 ML VIAL IV ONE (23:40)
[2018-07-21 23:51] LABS: ABSOLUTE BASOPHILS # (AUTO) 0.1 10^3/uL (0.0-0.2); ABSOLUTE EOSINOPHILS # (AUTO) 0.1 10^3/uL (0.0-0.6); ABSOLUTE LYMPHOCYTES (AUTO) 1.6 10^3/uL (0.5-4.7); ABSOLUTE MONOCYTES (AUTO) 0.5 10^3/uL (0.1-1.4); ABSOLUTE NEUT (AUTO) 4.6 10^3/uL (1.7-8.2); BASOPHILS % (AUTO) 0.7 % (0-2); HEMOGLOBIN 11.2 g/dL (12.0-15.5); LYMPHOCYTES % (AUTO) 23.4 % (13-45); MEAN CORPUSCULAR HGB CONC 32.9 g/dL (32.0-36.0); MEAN CORPUSCULAR VOLUME 88 fl (80-97); MONOCYTES % (AUTO) 7.7 % (3-13); PLATELET COUNT 258 10^3/uL (150-450); RED BLOOD COUNT 3.85 10^6/uL (3.72-5.28); RED CELL DISTRIBUTION WIDTH 15.3 % (11.5-14.0); SEGMENTED NEUTROPHILS % (AUTO) 66.2 % (42-78); TOTAL CELLS COUNTED % (AUTO) 100 %; WHITE BLOOD COUNT 6.9 10^3/uL (4.0-10.5)
[2018-07-22 00:26] LABS: BLOOD UREA NITROGEN 17 mg/dL (7-20); CALCIUM 9.5 mg/dL (8.4-10.2); GLUCOSE 115 mg/dL (75-110)
[2018-07-22 00:27] LABS: ANION GAP 10 (5-19); CARBON DIOXIDE 26 mmol/L (22-30); CHLORIDE 103 mmol/L (98-107); POTASSIUM 4.1 mmol/L (3.6-5.0); SODIUM 138.5 mmol/L (137-145)
--- NOTE | 2018-07-22 00:32 | RADIOLOGY REPORT (SQ) ---
EXAM DESCRIPTION: CT HEAD WITHOUT IV CONTRAST COMPLETED DATE/TME: 07/21/2018 22:56 CLINICAL HISTORY: 42 years, Female, headache COMPARISON: None. TECHNIQUE: CT brain without contrast. This exam was performed according to our departmental dose optimization program which includes use of automated exposure control, adjustment of the mA and/or kV according to patient size and/or use of iterative reconstruction technique. Images stored on PACS. All CT scanners at this facility use dose modulation, iterative reconstruction, and/or weight based dosing when appropriate to reduce radiation dose to as low as reasonably achievable (ALARA). [facility]: Dose Right [facility]: CareDose [facility]: Dose Right [facility]: Teradose 4D [facility]: [employer] LIMITATIONS: None. FINDINGS: The ventricles, sulci, and cisterns are within normal limits. The payne-white matter differentiation is preserved. There is no mass effect, midline shift, intra- or extra-axial fluid collection/acute hemorrhage. The osseous structures are unremarkable. The paranasal sinuses and mastoid air cells are clear. IMPRESSION: No acute intracranial abnormalities. TECHNICAL DOCUMENTATION: Quality ID # 436: Final reports with documentation of one or more dose reduction techniques (e.g., Automated exposure control, adjustment of the mA and/or kV according to patient size, use of iterative reconstruction technique) copyright 2011 [employer]- All Rights Reserved
[2018-07-22] MEDS ORDERED: ACETAMINOPHEN 325 MG TABLET PO ONE (00:52)
[2018-07-22 01:41] VITALS: BP 137/75
--- NOTE | 2018-07-22 22:32 | EKG REPORT ---
SEVERITY:- ABNORMAL ECG - SINUS RHYTHM ABNORMAL T, CONSIDER ISCHEMIA, LATERAL LEADS : Confirmed by: Kia Wong MD 22-Jul-2018 22:32:16
--- NOTE | 2018-07-22 22:32 | EKG REPORT ---
SEVERITY:- ABNORMAL ECG - SINUS RHYTHM ABNORMAL T, CONSIDER ISCHEMIA, LATERAL LEADS BORDERLINE PROLONGED QT INTERVAL : Confirmed by: Kia Wong MD 22-Jul-2018 22:32:19
== END 2018-07-22 02:11 | disposition home or self-care (01) ==
LOC: ER 22:25
DX: I10 Essential (primary) hypertension (principal); Z79.899 Other long term (current) drug therapy; R51 Headache; H53.8 Other visual disturbances; R11.0 Nausea; R00.1 Bradycardia, unspecified; I25.2 Old myocardial infarction; Z90.5 Acquired absence of kidney
CPT/HCPCS: 93005 ×2; 99284; 96374; 96375; 36415; 85025; 80048; 84484; 70450; 93010 ×2; J0360; J2270; J2550

== ENCOUNTER 2018-07-31 12:32 | Emergency (ER) | payer SELFPAY ==
[2018-07-31 12:43] VITALS: BP 140/80
== END 2018-07-31 12:48 | disposition left against medical advice (07) ==
LOC: ER 12:32
DX: Z53.21 Procedure and treatment not carried out due to patient leaving prior to being seen by health care provider (principal)